=== PATIENT | female | born 1950 | race Caucasian/White ===

== ENCOUNTER 2020-03-03 12:33 | Inpatient (IN) | payer MEDICARE, BC ==
--- NOTE | 2020-03-03 13:21 | ER Document Report ---
ED Medical Screen (RME) - General Chief Complaint: Knee Pain Stated Complaint: RIGHT KNEE/HIP PAIN, SWELLING Time Seen by Provider: 03/03/20 13:15 Primary Care Provider: LU VAZQUEZ MD [Primary Care Provider] - Follow up as needed Notes: HPI: 69-year-old female being treated with oral chemotherapy for ovarian cancer presenting for evaluation of right hip and right knee pain. Patient went to stand up yesterday and felt sudden pain in the hip and the knee. States she is having difficulty walking now because of the pain. She is on oxycodone 20 mg every 4 hours and states it is not helping her pain. Patient complaining about significant swelling of the right knee. Patient also complaining about pain in the right lateral chest, states she has a history of fluid in the lung and has had to have thoracentesis in the past and was told she would need to come to the hospital later today for an outpatient chest x-ray to evaluate whether she might need thoracentesis again. No fever. PHYSICAL EXAMINATION: There is moderate effusion to the right knee with mild tenderness on palpation. Mild tenderness on palpation of the right hip but limited exam due to sitting position in triage I have greeted and performed a rapid initial assessment of this patient. A comprehensive ED assessment and evaluation of the patient, analysis of test results and completion of medical decision making process will be conducted by an additional ED providers. - Related Data Allergies/Adverse Reactions: ciprofloxacin [From Cipro] Allergy (Verified 03/03/20 13:12) clarithromycin [From Biaxin] Allergy (Verified 03/03/20 13:12) gabapentin [From Neurontin] Allergy (Verified 03/03/20 13:12) linaclotide [From Linzess] Allergy (Verified 03/03/20 13:12) meloxicam [From Mobic] Allergy (Verified 03/03/20 13:12) meperidine [From Demerol] Allergy (Verified 03/03/20 13:12) Penicillins Allergy (Verified 03/03/20 13:12) tapentadol [From Nucynta] Allergy (Verified 03/03/20 13:12) Home Medications: Wellbutrin. Lamictal. Metoprolol. OxycontinValium. Zofram. Protonix. PlaquenilAtivan. Eliquis. Amiodorone. Calcium. L Lysine. Bcomp pierre. 1 a day. Vitamin d. Probiotic. Miralax. Ropinirole. Ambien. Dexamethasone Past Medical History - Social History Chew tobacco use (# tins/day): No Frequency of alcohol use: Occasional Drug Abuse: None - Past Medical History Cardiac Medical History: Reports: Hx Hypertension Denies: Hx Congestive Heart Failure, Hx Heart Attack Pulmonary Medical History: Reports: Hx Pneumonia Denies: Hx Asthma, Hx Bronchitis, Hx COPD, Hx Tuberculosis Neurological Medical History: Denies: Hx Seizures, Hx Parkinson's Disease Renal/ Medical History: Denies: Hx End Stage Renal Disease, Hx Kidney Stones GI Medical History: Denies: Hx Cirrhosis, Hx Gastroesophageal Reflux Disease, Hx Ulcer Musculoskeltal Medical History: Reports Hx Arthritis, Denies Hx Multiple Sclerosis Psychiatric Medical History: Reports: Hx Depression Denies: Hx Bipolar Disorder, Hx Schizophrenia - Immunizations Hx Diphtheria, Pertussis, Tetanus Vaccination: Yes Physical Exam - Vital signs Vitals: Temp Pulse Resp BP Pulse Ox 99.1 F 92 16 143/86 H 98 03/03/20 12:37 03/03/20 12:37 03/03/20 12:37 03/03/20 12:37 03/03/20 12:37 Course - Vital Signs Vital signs: Temp Pulse Resp BP Pulse Ox 99.1 F 92 16 143/86 H 98 03/03/20 13:04 03/03/20 12:37 03/03/20 12:37 03/03/20 12:37 03/03/20 12:37 Doctor's Discharge - Discharge Referrals: LU VAZQUEZ MD [Primary Care Provider] - Follow up as needed
--- NOTE | 2020-03-03 14:24 | RADIOLOGY REPORT (SQ) ---
EXAM DESCRIPTION: HIP RIGHT AP/LATERAL IMAGES COMPLETED DATE/TIME: 03/03/2020 1:56 pm REASON FOR STUDY: injury COMPARISON: None. NUMBER OF VIEWS: Two views. TECHNIQUE: AP pelvis and additional frog-leg view of the right hip. LIMITATIONS: None. FINDINGS: MINERALIZATION: Decreased. RIGHT HIP: No definite displaced fracture. Subcapital sclerotic band may represent osteophytosis alt adalid impacted nondisplaced fracture is not entirely excluded. Severe degenerative changes with bone on bone contact, subchondral sclerosis and subchondral cystic change. LEFT HIP: Left hip arthroplasty in adequate alignment on the single frontal projection. Distal tip o f the arthroplasty hardware is excluded collimation. PUBIS AND ISCHIUM: No fracture. SACRUM: No fracture or dislocation. No worrisome bone lesions. LOWER LUMBAR SPINE: Lumbar spondylosis and facet arthropathy. SOFT TISSUES: Scattered pelvic phleboliths. OTHER: No other significant finding. IMPRESSION: 1. No displaced fracture. Right hip demonstrates a subcapital sclerotic band which may represent osteophytosis although impacted nondisplaced fractures not entirely excluded. Recommend C T if inability to bear weight or high clinical concern for acute traumatic injury. 2. Severe degenerative changes of the right hip with bone on bone contact. TECHNICAL DOCUMENTATION: JOB ID: [id number] 2010 [employer]- All Rights Reserved Reading location - IP/workstation name: [email or web address]
--- NOTE | 2020-03-03 14:27 | RADIOLOGY REPORT (SQ) ---
EXAM DESCRIPTION: CHEST 2 VIEWS IMAGES COMPLETED DATE/TIME: 03/03/2020 1:56 pm REASON FOR STUDY: cough/poss thoracentesis COMPARISON: None. EXAM PARAMETERS: NUMBER OF VIEWS: two views TECHNIQUE: Digital Frontal and Lateral radiographic views of the chest acquired. RADIATION DOSE: NA LIMITATIONS: none FINDINGS: LUNGS AND PLEURA: Small right pleural effusion. Emphysematous change hyperinflation and i ncreased AP diameter. No pneumothorax. MEDIASTINUM AND HILAR STRUCTURES: No masses or contour abnormalities. HEART AND VASCULAR STRUCTURES: Heart normal size. No evidence for failure. BONES: No acute findings. HARDWARE: Calcified bilateral breast prostheses. Right chest port with catheter tip at right atrium. OTHER: No other significant finding. IMPRESSION: Emphysematous change with small right pleural effusion. No focal airspace disease. No pneumothorax. TECHNICAL DOCUMENTATION: JOB ID: [id number] 2010 [employer]- All Rights Reserved Reading location - IP/workstation name: [email or web address]
--- NOTE | 2020-03-03 14:42 | RADIOLOGY REPORT (SQ) ---
EXAM DESCRIPTION: KNEE RIGHT 4 VIEWS IMAGES COMPLETED DATE/TIME: 03/03/2020 1:56 pm REASON FOR STUDY: injury COMPARISON: None. NUMBER OF VIEWS: Four views. TECHNIQUE: AP, lateral, and both oblique radiographic images acquired of the right knee. LIMITATIONS: None. FINDINGS: MINERALIZATION: Decreased. BONES: No acute fracture dislocation. Small medial and patellar femoral compartment osteophytes. JOINT: Large joint effusion. SOFT TISSUES: No soft tissue swelling. No radio-opaque foreign body. OTHER: No other significant finding. IMPRESSION: 1. Large joint effusion without evidence of acute bony abnormality. 2. Decreased osseous mineralization with mild osteoarthritic change. TECHNICAL DOCUMENTATION: JOB ID: [id number] 2010 [employer]- All Rights Reserved Reading location - IP/workstation name: [email or web address]
[2020-03-03] MEDS ORDERED: LIDOCAINE 1%/EPINEPHRINE INJ 20 ML VIAL INJ ONE (14:52)
[2020-03-03] MEDS ORDERED: MORPHINE SULFATE 10 MG/ML INJ IV ONE ×2 (15:31→17:18)
--- NOTE | 2020-03-03 15:41 | RADIOLOGY REPORT (SQ) ---
EXAM DESCRIPTION: CT RT LOWER EXTREMITY WITHOUT IMAGES COMPLETED DATE/TIME: 03/03/2020 3:24 pm REASON FOR STUDY: hip pain COMPARISON: Same day radiograph TECHNIQUE: CT scan of the right hip performed without intravenous or oral contrast. Images reviewed with soft tissue and bone windows. Reconstructed coronal and sagittal MPR images reviewed. All ritesh ges stored on PACS. All CT scanners at this facility use dose modulation, iterative reconstruction, and/or weight based d osing when appropriate to reduce radiation dose to as low as reasonably achievable (ALARA). [facility]: Dose Right [facility]: CareDose [facility]: Dose Right [facility]: Teradose 4D [facility]: MyShape RADIATION DOSE: CT Rad equipment meets quality standard of care and radiation dose reduction techniq ues were employed. CTDIvol: 4.1 mGy. DLP: 111 mGy-cm. mGy. LIMITATIONS: None. FINDINGS: PELVIC BONES: No acute fracture. No worrisome bone lesions. VISUALIZED SPINE: No acute findings. SYMPTOMATIC HIP: No fracture identified. Previously-seen sclerotic band likely corresponds to subcap ital osteophytosis. There is severe degenerative changes at the right hip with bone on bone contact, subchondral sclerosis and subchondral cystic change. OPPOSITE HIP: Not imaged. PELVIC SOFT TISSUES: Postsurgical changes from prior bowel resection with chain staple line partially visualized. EXTRAPELVIC SOFT TISSUES: Subcutaneous edema no along the visualize lower extremity. OTHER: No other significant finding. IMPRESSION: No evidence of acute fracture of the right hip. Severe osteoarthritic changes with bone on bone contact. TECHNICAL DOCUMENTATION: JOB ID: [id number] Quality ID # [id number]: Final reports with documentation of one or more dose reduction techniques (e.g., Au tomated exposure control, adjustment of the mA and/or kV according to patient size, use of iterative reconstruction technique) 2010 [employer]- All Rights Reserved Reading location - IP/workstation name: [email or web address]
[2020-03-03 15:46] LABS: HEMATOCRIT 26.3 % (36.0-47.0); HEMOGLOBIN 8.6 g/dL (12.0-15.5); MEAN CORPUSCULAR HEMOGLOBIN 28.5 pg (27.0-33.4); MEAN CORPUSCULAR HGB CONC 32.5 g/dL (32.0-36.0); MEAN CORPUSCULAR VOLUME 88 fl (80-97); PLATELET COUNT 282 10^3/uL (150-450); RED CELL DISTRIBUTION WIDTH 17.5 % (11.5-14.0); WHITE BLOOD COUNT 4.8 10^3/uL (4.0-10.5)
[2020-03-03 15:58] LABS: ALBUMIN 3.6 g/dL (3.5-5.0); ALKALINE PHOSPHATASE 206 U/L (38-126); ANION GAP 7 (5-19); ASPARTATE AMINO TRANSFERASE 40 U/L (14-36); BILIRUBIN,TOTAL 0.3 mg/dL (0.2-1.3); BLOOD UREA NITROGEN 19 mg/dL (7-20); CALCIUM 8.6 mg/dL (8.4-10.2); CARBON DIOXIDE 28 mmol/L (22-30); CHLORIDE 98 mmol/L (98-107); GLUCOSE 94 mg/dL (75-110); POTASSIUM 4.5 mmol/L (3.6-5.0); TOTAL PROTEIN 6.2 g/dL (6.3-8.2)
[2020-03-03 16:27] LABS: ABSOLUTE LYMPHOCYTES# (MANUAL) 0.8 10^3/uL (0.5-4.7); ABSOLUTE MONOCYTES # (MANUAL) 0.5 10^3/uL (0.1-1.4); BASOPHILS % (MANUAL) 0 % (0-2); EOSINOPHILS % (MANUAL) 0 % (0-6); LYMPHOCYTES % (MANUAL) 16 % (13-45); MONOCYTES % (MANUAL) 11 % (3-13); SEGMENTED NEUTROPHILS % (MAN) 73 % (42-78); TOTAL CELLS COUNTED 100
[2020-03-03 16:28] LABS: ANISOCYTOSIS 1+; OVALOCYTES SLIGHT; PLATELET COMMENT ADEQUATE
[2020-03-03 17:17] LABS: MONOSODIUM URATE CRYSTALS NONE OBSERVED
[2020-03-03 17:18] LABS: CALCIUM PYROPHOSPHATE CRYSTALS INTRACELLULAR; OTHER CRYSTALS NONE OBSERVED
[2020-03-03 17:36] LABS: FLUID APPEARANCE CLOUDY; FLUID COLOR YELLOW; FLUID SOURCE KNEE; FLUID TYPE SYNOVIAL; FLUID VISCOSITY MODERATELY VISCOUS
[2020-03-03 17:56] LABS: APPEARANCE,URINE CLEAR; BILIRUBIN,URINE NEGATIVE (NEGATIVE); COLOR,URINE STRAW; GLUCOSE, URINE NEGATIVE (NEGATIVE); KETONES,URINE NEGATIVE (NEGATIVE); LEUKOCYTE ESTERASE,URINE NEGATIVE (NEGATIVE); NITRITE,URINE NEGATIVE (NEGATIVE); PROTEIN,URINE NEGATIVE (NEGATIVE); URINE SPECIFIC GRAVITY 1.004; UROBILINOGEN,URINE NEGATIVE mg/dL (<2.0)
--- NOTE | 2020-03-03 17:56 | ER Document Report ---
ED General - General Chief Complaint: Knee Pain Stated Complaint: RIGHT KNEE/HIP PAIN, SWELLING Time Seen by Provider: 03/03/20 13:15 Primary Care Provider: LU VAZQUEZ MD [Primary Care Provider] - Follow up as needed Information source: Patient - HPI Notes: Patient presents complaining of right knee and right hip pain. She denies any recent falls or trauma. She states she is an ovarian cancer patient is currently on chemotherapy. She states she is also on a blood thinner. She states she just woke up this morning and noticed that the knee and the right hip are painful and swollen and that it was hard to bear weight. This pain is constant. It is worse with movement and better with rest. It radiates up the right leg. It is moderate to severe in intensity and is a constant throbbing sensation. She denies fevers or any other problems. - Related Data Allergies/Adverse Reactions: ciprofloxacin [From Cipro] Allergy (Verified 03/03/20 13:12) clarithromycin [From Biaxin] Allergy (Verified 03/03/20 13:12) gabapentin [From Neurontin] Allergy (Verified 03/03/20 13:12) linaclotide [From Linzess] Allergy (Verified 03/03/20 13:12) meloxicam [From Mobic] Allergy (Verified 03/03/20 13:12) meperidine [From Demerol] Allergy (Verified 03/03/20 13:12) Penicillins Allergy (Verified 03/03/20 13:12) tapentadol [From Nucynta] Allergy (Verified 03/03/20 13:12) Home Medications: Wellbutrin. Lamictal. Metoprolol. OxycontinValium. Zofram. Protonix. PlaquenilAtivan. Eliquis. Amiodorone. Calcium. L Lysine. Bcomplex. 1 a day. Vitamin d. Probiotic. Miralax. Ropinirole. Ambien. Dexamethasone Past Medical History - General Information source: Patient - Social History Smoking Status: Never Smoker Chew tobacco use (# tins/day): No Frequency of alcohol use: Occasional Drug Abuse: None Family History: Reviewed & Not Pertinent Patient has homicidal ideation: No - Past Medical History Cardiac Medical History: Reports: Hx Hypertension Denies: Hx Congestive Heart Failure, Hx Heart Attack Pulmonary Medical History: Reports: Hx Pneumonia Denies: Hx Asthma, Hx Bronchitis, Hx COPD, Hx Tuberculosis Neurological Medical History: Denies: Hx Seizures, Hx Parkinson's Disease Renal/ Medical History: Denies: Hx End Stage Renal Disease, Hx Kidney Stones GI Medical History: Denies: Hx Cirrhosis, Hx Gastroesophageal Reflux Disease, Hx Ulcer Musculoskeletal Medical History: Reports Hx Arthritis, Denies Hx Multiple Sclerosis Psychiatric Medical History: Reports: Hx Depression Denies: Hx Bipolar Disorder, Hx Schizophrenia - Immunizations Hx Diphtheria, Pertussis, Tetanus Vaccination: Yes Review of Systems - Review of Systems Constitutional: denies: Chills, Fever Cardiovascular: denies: Chest pain, Palpitations Respiratory: denies: Cough, Short of breath -: Yes All other systems reviewed and negative Physical Exam - Vital signs Vitals: Temp Pulse Resp BP Pulse Ox 99.1 F 92 16 143/86 H 98 03/03/20 12:37 03/03/20 12:37 03/03/20 12:37 03/03/20 12:37 03/03/20 12:37 Interpretation: Normal - General General appearance: Appears well, Alert - HEENT Head: Normocephalic, Atraumatic Eyes: Normal Pupils: PERRL - Respiratory Respiratory status: No respiratory distress Chest status: Nontender Breath sounds: Normal Chest palpation: Normal - Cardiovascular Rhythm: Regular Heart sounds: Normal auscultation Murmur: No - Abdominal Inspection: Normal Distension: No distension Bowel sounds: Normal Tenderness: Nontender Organomegaly: No organomegaly - Back Back: Normal, Nontender - Extremities General upper extremity: Normal inspection, Nontender, Normal color, Normal ROM, Normal temperature General lower extremity: Other - Right knee has a large tender joint effusion. There is a slight increase of temperature to the right knee. The right knee does have limited range of motion. She is neurovascular intact distally. The right hip is also somewhat tender to palpation with limited range of motion. I do not appreciate any joint effusion of the right hip.. No: Arthur's sign - Neurological Neuro grossly intact: Yes Cognition: Normal Orientation: AAOx4 Elio Coma Scale Eye Opening: Spontaneous Elio Coma Scale Verbal: Oriented Elio Coma Scale Motor: Obeys Commands Sidney Coma Scale Total: 15 Speech: Normal Motor strength normal: LUE, RUE, LLE, RLE Sensory: Normal - Psychological Associated symptoms: Normal affect, Normal mood - Skin Skin Temperature: Warm Skin Moisture: Dry Skin Color: Normal Course - Re-evaluation Re-evalutation: 03/03/20 18:53 Patient presents with a large tender swollen knee. I did aspirate synovial fluid and it was cloudy. It does have a high percentage of neutrophils and it it does have a borderline white blood cell count however in the setting of this patient being immunocompromised with cancer and being on chemotherapy it seems most prudent to start the patient on antibiotics. In addition there is no other good reason for the patient's joint swelling and elevated white blood cell count as crystals were not seen. - Vital Signs Vital signs: Temp Pulse Resp BP Pulse Ox 99.0 F 93 16 139/86 H 99 03/03/20 18:47 03/03/20 18:47 03/03/20 18:47 03/03/20 18:47 03/03/20 18:47 - Laboratory Result Diagrams: 03/03/20 15:25 03/03/20 15:25 Laboratory results interpreted by me: 03/03/20 03/03/20 15:25 15:25 RBC 3.00 L Hgb 8.6 L Hct 26.3 L RDW 17.5 H Sodium 132.7 L AST 40 H Alkaline Phosphatase 206 H Total Protein 6.2 L - Diagnostic Test Radiology reviewed: Image reviewed, Reports reviewed Procedures - Joint Aspiration Right Knee Time completed: 18:54 Consent obtained: Yes Joint aspiration pre-procedure: Betadine prep applied, Sterile drapes applied Anesthetic type: 1% Lidocaine w/epi mL's of anesthetic: 3 Needle size: 18 Amount/type of drainage: 100ml Number of attempts: 1 Complications: No Discharge - Discharge Clinical Impression: Septic joint of right knee joint Qualifiers: Septic arthritis organism: due to unspecified organism Qualified Code(s): M00.9 - Pyogenic arthritis, unspecified Condition: Serious Disposition: ADMITTED INPATIENT Admitting Provider: Philipp (Hospitalist) Unit Admitted: Medical Floor Referrals: LU VAZQUEZ MD [Primary Care Provider] - Follow up as needed
[2020-03-03] MEDS ORDERED: CEFEPIME 2 GM/D5W RTU 2 GM/50 ML RTUPB IV ONE (18:46)
[2020-03-03] MEDS ORDERED: VANCOMYCIN HCL INJ 1000 MG VIAL IV ONE (18:46)
[2020-03-03] MEDS ORDERED: MAG HYDROX/AL HYDROX/SIMETH SUSP 30 ML UDCUP PO PRN (19:27)
[2020-03-03] MEDS ORDERED: IPRATROPIUM/ALBUTEROL 0.5-2.5 MG/3 ML AMPUL NEB PRN (19:27)
[2020-03-03] MEDS ORDERED: MAGNESIUM HYDROXIDE SUSP 30 ML UDCUP PO PRN (19:27)
[2020-03-03] MEDS ORDERED: ACETAMINOPHEN 325 MG TABLET PO PRN (19:27)
[2020-03-03] MEDS ORDERED: VANCOMYCIN HCL 0 MG in DEXTROSE 5%-WATER 250 ML IV NR (19:30)
[2020-03-03] MEDS ORDERED: DIAZEPAM 5 MG TABLET PO PRN (22:22)
[2020-03-03] MEDS ORDERED: ZOLPIDEM TARTRATE 5 MG TABLET PO PRN (22:25)
[2020-03-03] MEDS ORDERED: OXYCODONE HCL IR 5 MG TABLET PO PRN (22:26)
[2020-03-03] MEDS: HEPARIN SOD (PORCINE) 5,000 UNIT/ML 1 ML VIAL SUBCUT SCH (22:56)
[2020-03-03] MEDS ORDERED: AMIODARONE HCL 200 MG TABLET PO ONE (23:00)
[2020-03-03] MEDS ORDERED: ROPINIROLE HCL 1 MG TABLET PO ONE (23:00)
[2020-03-03] MEDS ORDERED: OXYCODONE HCL IR 5 MG TABLET PO ONE (23:00)
[2020-03-03] MEDS ORDERED: POLYETHYLENE GLYCOL 3350 POWDER 17 GM/1 PACKET PO ONE (23:00)
[2020-03-03] MEDS ORDERED: APIXABAN 2.5 MG TABLET PO ONE (23:00)
[2020-03-04] MEDS: NORMAL SALINE 1000 ML 1,000 ML IV PRN ×2 (00:43→06:01)
[2020-03-04] MEDS ORDERED: LORAZEPAM 0.5 MG TABLET PO PRN (04:50)
--- NOTE | 2020-03-04 05:05 | PDOC H&P ---
History of Present Illness Admission Date/PCP: 03/03/20 19:30 LU BLOCK MD Patient complains of: Right knee pain and swelling History of Present Illness: DI CHOWDHURY is a 69 year old female with a past medical history of hypertension, depression, anxiety, osteoarthritis, breast cancer and palliative care chemotherapy through Dr. Miles and Dr. Block for recurrent ovarian cancer. She presents with 24 hours of spontaneous pain swelling and erythema to the right knee, unable to bear weight without preceding injury or subsequent fever. She is seen in the emergency department where she is found to have swelling of the right knee, arthrocentesis reveals leukocytosis of 34,000. She started on empiric antibiotics, symptomatic management and referred to the hospitalist following consultation recommendations of orthopedic surgery Dr. Foley. Patient denies previous episode but admits to severe osteoarthritis of the right knee and hip. She also admits to a new unclear chemo therapeutic agent. Past Medical History Cardiac Medical History: Reports: Hypertension Denies: Congestive Heart Failure, Myocardial Infarction Pulmonary Medical History: Reports: Pneumonia Denies: Asthma, Bronchitis, Chronic Obstructive Pulmonary Disease (COPD), Tuberculosis Neurological Medical History: Denies: Seizures Renal/ Medical History: Denies: End Stage Renal Disease Malignancy Medical History: Reports: Breast Cancer, Ovarian Cancer GI Medical History: Reports: Other - Partial bowel resection with recurrent partial obstruction Denies: Cirrhosis, Gastroesophageal Reflux Disease Musculoskeltal Medical History: Reports: Arthritis Psychiatric Medical History: Reports: Depression Denies: Bipolar Disorder Hematology: Reports: Anemia Denies: Bleeding Tendencies Past Surgical History Past Surgical History: Reports: Knee Replacement, Orthopedic Surgery - Left knee and hip, Other - Partial bowel resection Social History Information Source: Patient Smoking Status: Former Smoker Cigarettes Packs Per Day: 0.5 Electronic Cigarette use?: No Frequency of Alcohol Use: Occasional Hx Recreational Drug Use: Yes Drugs: Marijuana Hx Prescription Drug Abuse: No - Advance Directive Resuscitation Status: Full Code Family History Family History: Arthritis, Hypertension Parental Family History Reviewed: Yes Children Family History Reviewed: Yes Sibling(s) Family History Reviewed.: Yes Medication/Allergy Home Medications: Amiodarone HCl [Cordarone 200 mg Tablet] 200 mg PO MOWEFR@1000 03/03/20 Apixaban [Eliquis 2.5 mg Tablet] 2.5 mg PO BID 03/03/20 Bupropion HCl [Bupropion Xl] 300 mg PO DAILY 03/03/20 Calcium Carbonate [Calcium] 600 mg PO DAILY 03/03/20 Diazepam [Valium] 10 mg PO DAILYP PRN 03/03/20 Ergocalciferol (Vitamin D2) [Vitamin D2] 50,000 unit PO DAILY 03/03/20 Lamotrigine [Lamictal] 100 mg PO DAILY 03/03/20 Lorazepam [Ativan 0.5 mg Tablet] 0.5 mg PO Q4HP PRN 03/03/20 Metoprolol Tartrate [Lopressor 25 mg Tablet] 25 mg PO DAILY 03/03/20 Multivitamin [Daily Multiple Vitamin] 1 each PO DAILY 03/03/20 Oxycodone HCl [Oxy-Ir 5 mg Tablet] 20 mg PO Q4HP PRN 03/03/20 Oxycodone HCl [Oxycodone HCl ER] 10 mg PO BID 03/03/20 Polyethylene Glycol 3350 [Miralax Powder 17 gm/Packet] 17 gm PO QHS 03/03/20 Prochlorperazine Maleate [Compazine] 10 mg PO DAILYP PRN 03/03/20 Ropinirole HCl 1 mg PO QHS 03/03/20 Zolpidem Tartrate [Ambien 5 mg Tablet] 5 mg PO HSP PRN 03/03/20 Allergies/Adverse Reactions: ciprofloxacin [From Cipro] Allergy (Verified 03/03/20 13:12) clarithromycin [From Biaxin] Allergy (Verified 03/03/20 13:12) gabapentin [From Neurontin] Allergy (Verified 03/03/20 13:12) linaclotide [From Linzess] Allergy (Verified 03/03/20 13:12) meloxicam [From Mobic] Allergy (Verified 03/03/20 13:12) meperidine [From Demerol] Allergy (Verified 03/03/20 13:12) Penicillins Allergy (Verified 03/03/20 13:12) tapentadol [From Nucynta] Allergy (Verified 03/03/20 13:12) Review of Systems Constitutional: PRESENT: as per HPI, weakness, weight loss, other - Cachexia with temporal wasting. ABSENT: chills, fever(s), headache(s), weight gain Eyes: ABSENT: visual disturbances Ears: ABSENT: hearing changes Cardiovascular: ABSENT: chest pain, dyspnea on exertion, edema, orthropnea, palpitations Respiratory: ABSENT: cough, hemoptysis Gastrointestinal: ABSENT: abdominal pain, constipation, diarrhea, hematemesis, hematochezia, nausea, vomiting Genitourinary: ABSENT: dysuria, hematuria Musculoskeletal: PRESENT: as per HPI, joint swelling, muscle weakness Integumentary: ABSENT: rash, wounds Neurological: ABSENT: abnormal gait, abnormal speech, confusion, dizziness, focal weakness, syncope Psychiatric: ABSENT: anxiety, depression, homidical ideation, suicidal ideation Endocrine: ABSENT: cold intolerance, heat intolerance, polydipsia, polyuria Hematologic/Lymphatic: ABSENT: easy bleeding, easy bruising Physical Exam Vital Signs: Temp Pulse Resp BP Pulse Ox 98.8 F 86 16 113/72 100 03/03/20 23:16 03/03/20 23:50 03/03/20 23:50 03/03/20 23:16 03/03/20 23:50 Intake & Output 03/02/20 03/03/20 03/04/20 11:59 11:59 11:59 Intake Total 200 Balance 200 Weight 49.5 kg General appearance: PRESENT: cooperative, mild distress, thin, other - Cachexia with temporal wasting. ABSENT: disheveled Head exam: PRESENT: atraumatic, normocephalic Eye exam: PRESENT: conjunctiva pink, EOMI, PERRLA. ABSENT: scleral icterus Ear exam: PRESENT: normal external ear exam Mouth exam: PRESENT: moist, tongue midline Neck exam: ABSENT: carotid bruit, JVD, lymphadenopathy, thyromegaly Respiratory exam: PRESENT: clear to auscultation seth. ABSENT: rales, rhonchi, wheezes Cardiovascular exam: PRESENT: RRR. ABSENT: diastolic murmur, rubs, systolic mur mur Pulses: PRESENT: normal dorsalis pedis pul Vascular exam: PRESENT: normal capillary refill GI/Abdominal exam: PRESENT: normal bowel sounds, soft. ABSENT: distended, guarding, mass, organolmegaly, rebound, tenderness Rectal exam: PRESENT: deferred Extremities exam: PRESENT: full ROM, joint swelling - Right knee joint swelling. ABSENT: calf tenderness, clubbing, pedal edema Neurological exam: PRESENT: alert, awake, oriented to person, oriented to place, oriented to time, oriented to situation, CN II-XII grossly intact. ABSENT: motor sensory deficit Psychiatric exam: PRESENT: appropriate affect, normal mood. ABSENT: homicidal ideation, suicidal ideation Skin exam: PRESENT: dry, intact, warm. ABSENT: cyanosis, rash Results Laboratory Results: 03/03/20 15:25 03/03/20 15:25 03/03/20 03/03/20 03/03/20 15:25 15:25 16:30 WBC 4.8 RBC 3.00 L Hgb 8.6 L Hct 26.3 L MCV 88 MCH 28.5 MCHC 32.5 RDW 17.5 H Plt Count 282 Seg Neutrophils % Not Reportable Sodium 132.7 L Potassium 4.5 Chloride 98 Carbon Dioxide 28 Anion Gap 7 BUN 19 Creatinine 0.86 Est GFR ( Amer) > 60 Glucose 94 Calcium 8.6 Total Bilirubin 0.3 AST 40 H Alkaline Phosphatase 206 H Total Protein 6.2 L Albumin 3.6 Urine Color Urine Appearance Urine pH Ur Specific [place] Urine Protein Urine Glucose (UA) Urine Ketones Urine Blood Urine Nitrite Ur Leukocyte Esterase Urine WBC (Auto) Urine RBC (Auto) Fluid Type SYNOVIAL Fluid Source Fluid Color Fluid Appearance Fluid Viscosity Fluid WBC Fluid RBC 03/03/20 03/03/20 16:30 17:00 WBC RBC Hgb Hct MCV MCH MCHC RDW Plt Count Seg Neutrophils % Sodium Potassium Chloride Carbon Dioxide Anion Gap BUN Creatinine Est GFR ( Amer) Glucose Calcium Total Bilirubin AST Alkaline Phosphatase Total Protein Albumin Urine Color STRAW Urine Appearance CLEAR Urine pH 5.0 Ur Specific [place] 1.004 Urine Protein NEGATIVE Urine Glucose (UA) NEGATIVE Urine Ketones NEGATIVE Urine Blood NEGATIVE Urine Nitrite NEGATIVE Ur Leukocyte Esterase NEGATIVE Urine WBC (Auto) 1 Urine RBC (Auto) 0 Fluid Type SYNOVIAL Fluid Source KNEE Fluid Color YELLOW Fluid Appearance CLOUDY Fluid Viscosity MODERATELY VISCOUS Fluid WBC 39175 Fluid RBC 8018 Impressions: Chest X-Ray 03/03/20 13:19 IMPRESSION: Emphysematous change with small right pleural effusion. No focal airspace disease. No pneumothorax. Hip/Pelvis X-Ray 03/03/20 13:19 IMPRESSION: 1. No displaced fracture. Right hip demonstrates a subcapital sclerotic band which may represent osteophytosis although impacted nondisplaced fractures not entirely excluded. Recommend CT if inability to bear weight or high clinical concern for acute traumatic injury. 2. Severe degenerative changes of the right hip with bone on bone contact. Knee X-Ray 03/03/20 13:19 IMPRESSION: 1. Large joint effusion without evidence of acute bony abnormality. 2. Decreased osseous mineralization with mild osteoarthritic change. Lower Extremity CT 03/03/20 14:46 IMPRESSION: No evidence of acute fracture of the right hip. Severe osteoarthritic changes with bone on bone contact. Assessment and Plan - Diagnosis (1) Anemia Is this a current diagnosis for this admission?: Yes Plan: Likely secondary to chronic disease, follow-up anemia work-up (2) Pain Is this a current diagnosis for this admission?: Yes Plan: Outpatient regiment with OxyIR holding parameters for systolic pressure less than 100 (3) Ovarian cancer Is this a current diagnosis for this admission?: Yes Plan: Consider oncology consult with Dr. Quevedo, otherwise follow-up outpatient (4) Septic joint of right knee joint Qualifiers: Septic arthritis organism: due to unspecified organism Qualified Code(s): M00.9 - Pyogenic arthritis, unspecified Is this a current diagnosis for this admission?: Yes Plan: Empiric antibiotics initiated, IV fluid challenge, follow-up CBC, synovial fluid and blood culture - Time Time Spent with patient: 25-34 minutes - Inpatient Certification Medical Necessity: Need Close Monitoring Due to Risk of Patient Decompensation
[2020-03-04] MEDS: OXYCODONE HCL IR 5 MG TABLET PO PRN ×4 (05:23→21:07)
[2020-03-04 05:47] LABS: HEMATOCRIT 20.1 % (36.0-47.0); MEAN CORPUSCULAR HEMOGLOBIN 28.7 pg (27.0-33.4); MEAN CORPUSCULAR HGB CONC 33.3 g/dL (32.0-36.0); MEAN CORPUSCULAR VOLUME 86 fl (80-97); PLATELET COUNT 190 10^3/uL (150-450); RED BLOOD COUNT 2.34 10^6/uL (3.72-5.28); RED CELL DISTRIBUTION WIDTH 16.7 % (11.5-14.0); WHITE BLOOD COUNT 3.1 10^3/uL (4.0-10.5)
[2020-03-04 05:58] LABS: ABSOLUTE RETICS # 0.055 10^6/uL (0.028-0.122); RETICULOCYTE COUNT (AUTO) 2.32 % (0.66-2.85)
[2020-03-04 06:10] LABS: HEMOGLOBIN 6.7 g/dL (12.0-15.5); IRON(TIBC) 16.8 ug/dL (37-170)
[2020-03-04 06:15] LABS: BLOOD UREA NITROGEN 15 mg/dL (7-20); CALCIUM 8.1 mg/dL (8.4-10.2); CARBON DIOXIDE 29 mmol/L (22-30); GLUCOSE 92 mg/dL (75-110); POTASSIUM 4.1 mmol/L (3.6-5.0)
[2020-03-04 06:16] LABS: ABSOLUTE LYMPHOCYTES# (MANUAL) 0.6 10^3/uL (0.5-4.7); ABSOLUTE MONOCYTES # (MANUAL) 0.6 10^3/uL (0.1-1.4); ANISOCYTOSIS 1+; BASOPHILS % (MANUAL) 1 % (0-2); EOSINOPHILS % (MANUAL) 2 % (0-6); LYMPHOCYTES % (MANUAL) 18 % (13-45); MONOCYTES % (MANUAL) 19 % (3-13); OVALOCYTES SLIGHT; PLATELET COMMENT ADEQUATE; POIKILOCYTOSIS SLIGHT; SEGMENTED NEUTROPHILS % (MAN) 60 % (42-78); TOTAL CELLS COUNTED 100
[2020-03-04 06:21] LABS: CHLORIDE 101 mmol/L (98-107)
[2020-03-04 06:24] LABS: ANION GAP 4 (5-19)
--- NOTE | 2020-03-04 07:49 | PDOC CONSULTATION ---
Consultation Consult Date: 03/04/20 Attending physician:: TEO ROTH Provider Consulted: LCUINA PIZANO Consult reason:: 1. Right knee pain and swelling. 2. Right hip pain History of Present Illness Admission Date/PCP: 03/03/20 19:30 LU VAZQUEZ MD Patient complains of: 1. Right knee pain and swelling and inability to ambulate. 2. Right hip pain History of Present Illness: DI CHOWDHURY is a 69 year old female with a history of ovarian cancer. She has been admitted to the hospitalist service complaining of worsening pain i n her right knee and hip and inability to ambulate. Patient underwent arthrocentesis in the emergency department last evening. Examination of the synovial fluid as well as radiographic examination of the knee is consistent with pseudogout. Past Medical History Cardiac Medical History: Reports: Hypertension Denies: Congestive Heart Failure, Myocardial Infarction Pulmonary Medical History: Reports: Pneumonia Denies: Asthma, Bronchitis, Chronic Obstructive Pulmonary Disease (COPD), Tuberculosis Neurological Medical History: Denies: Seizures Renal/ Medical History: Denies: End Stage Renal Disease Malignancy Medical History: Reports: Breast Cancer, Ovarian Cancer GI Medical History: Reports: Other - Partial bowel resection with recurrent partial obstruction Denies: Cirrhosis, Gastroesophageal Reflux Disease Musculoskeltal Medical History: Reports: Arthritis Psychiatric Medical History: Reports: Depression Denies: Bipolar Disorder Hematology: Reports: Anemia Denies: Bleeding Tendencies Past Surgical History Past Surgical History: Reports: Knee Replacement, Orthopedic Surgery - Left knee and hip, Other - Partial bowel resection Social History Smoking Status: Former Smoker Cigarettes Packs Per Day: 0.5 Electronic Cigarette use?: No Frequency of Alcohol Use: Occasional Hx Recreational Drug Use: Yes Drugs: Marijuana Hx Prescription Drug Abuse: No - Advance Directive Resuscitation Status: Full Code Family History Family History: Arthritis, Hypertension Parental Family History Reviewed: Yes Children Family History Reviewed: Yes Sibling(s) Family History Reviewed.: Yes Medication/Allergy Home Medications: Amiodarone HCl [Cordarone 200 mg Tablet] 200 mg PO MOWEFR@1000 03/03/20 Apixaban [Eliquis 2.5 mg Tablet] 2.5 mg PO BID 03/03/20 Bupropion HCl [Bupropion Xl] 300 mg PO DAILY 03/03/20 Calcium Carbonate [Calcium] 600 mg PO DAILY 03/03/20 Diazepam [Valium] 10 mg PO DAILYP PRN 03/03/20 Ergocalciferol (Vitamin D2) [Vitamin D2] 50,000 unit PO DAILY 03/03/20 Lamotrigine [Lamictal] 100 mg PO DAILY 03/03/20 Lorazepam [Ativan 0.5 mg Tablet] 0.5 mg PO Q4HP PRN 03/03/20 Metoprolol Tartrate [Lopressor 25 mg Tablet] 25 mg PO DAILY 03/03/20 Multivitamin [Daily Multiple Vitamin] 1 each PO DAILY 03/03/20 Oxycodone HCl [Oxy-Ir 5 mg Tablet] 20 mg PO Q4HP PRN 03/03/20 Oxycodone HCl [Oxycodone HCl ER] 10 mg PO BID 03/03/20 Polyethylene Glycol 3350 [Miralax Powder 17 gm/Packet] 17 gm PO QHS 03/03/20 Prochlorperazine Maleate [Compazine] 10 mg PO DAILYP PRN 03/03/20 Ropinirole HCl 1 mg PO QHS 03/03/20 Zolpidem Tartrate [Ambien 5 mg Tablet] 5 mg PO HSP PRN 03/03/20 Allergies/Adverse Reactions: ciprofloxacin [From Cipro] Allergy (Verified 03/03/20 13:12) clarithromycin [From Biaxin] Allergy (Verified 03/03/20 13:12) gabapentin [From Neurontin] Allergy (Verified 03/03/20 13:12) linaclotide [From Linzess] Allergy (Verified 03/03/20 13:12) meloxicam [From Mobic] Allergy (Verified 03/03/20 13:12) meperidine [From Demerol] Allergy (Verified 03/03/20 13:12) Penicillins Allergy (Verified 03/03/20 13:12) tapentadol [From Nucynta] Allergy (Verified 03/03/20 13:12) Review of Systems ROS unobtainable: Other - As per HPI Physical Exam Vital Signs: Temp Pulse Resp BP Pulse Ox 98.8 F 87 16 122/81 100 03/03/20 23:16 03/04/20 05:20 03/03/20 23:50 03/04/20 05:20 03/03/20 23:50 Intake & Output 03/03/20 03/04/20 03/05/20 06:59 06:59 06:59 Intake Total 1650 Balance 1650 Weight 49.5 kg General appearance: PRESENT: no acute distress Head exam: PRESENT: atraumatic, normocephalic Neck exam: PRESENT: full ROM Respiratory exam: PRESENT: clear to auscultation seth. ABSENT: rales, rhonchi, wheezes Cardiovascular exam: PRESENT: RRR. ABSENT: bradycardia, clicks, diastolic mu rmur, gallop, irregular rhythm, rubs, +S1, +S2, systolic murmur, tachycardia, other Pulses: PRESENT: +2 pedal pulses bilateral GI/Abdominal exam: PRESENT: soft Rectal exam: PRESENT: deferred Musculoskeletal exam: PRESENT: other - Examination of the right hip: There is significant loss of motion in the right hip particularly in internal rotation consistent with severe degenerative osteoarthritis. Examination of the right knee: There is a moderate effusion of the knee. There is slight erythema and warmth. Gentle passive range of motion of the knee is possible. Results Laboratory Results: 03/04/20 05:20 03/04/20 05:20 03/03/20 03/03/20 03/03/20 15:25 15:25 16:30 WBC 4.8 RBC 3.00 L Hgb 8.6 L Hct 26.3 L MCV 88 MCH 28.5 MCHC 32.5 RDW 17.5 H Plt Count 282 Seg Neutrophils % Not Reportable Retic Count (auto) Sodium 132.7 L Potassium 4.5 Chloride 98 Carbon Dioxide 28 Anion Gap 7 BUN 19 Creatinine 0.86 Est GFR ( Amer) > 60 Glucose 94 Calcium 8.6 Iron TIBC % Saturation Transferrin Ferritin Total Bilirubin 0.3 AST 40 H Alkaline Phosphatase 206 H Total Protein 6.2 L Albumin 3.6 Vitamin B12 Folate Urine Color Urine Appearance Urine pH Ur Specific [place] Urine Protein Urine Glucose (UA) Urine Ketones Urine Blood Urine Nitrite Ur Leukocyte Esterase Urine WBC (Auto) Urine RBC (Auto) Fluid Type SYNOVIAL Fluid Source Fluid Color Fluid Appearance Fluid Viscosity Fluid WBC Fluid RBC 03/03/20 03/03/20 03/04/20 16:30 17:00 05:20 WBC 3.1 L RBC 2.34 L Hgb 6.7 L Hct 20.1 L MCV 86 MCH 28.7 MCHC 33.3 RDW 16.7 H Plt Count 190 Seg Neutrophils % Not Reportable Retic Count (auto) Sodium Potassium Chloride Carbon Dioxide Anion Gap BUN Creatinine Est GFR ( Amer) Glucose Calcium Iron TIBC % Saturation Transferrin Ferritin Total Bilirubin AST Alkaline Phosphatase Total Protein Albumin Vitamin B12 Folate Urine Color STRAW Urine Appearance CLEAR Urine pH 5.0 Ur Specific [place] 1.004 Urine Protein NEGATIVE Urine Glucose (UA) NEGATIVE Urine Ketones NEGATIVE Urine Blood NEGATIVE Urine Nitrite NEGATIVE Ur Leukocyte Esterase NEGATIVE Urine WBC (Auto) 1 Urine RBC (Auto) 0 Fluid Type SYNOVIAL Fluid Source KNEE Fluid Color YELLOW Fluid Appearance CLOUDY Fluid Viscosity MODERATELY VISCOUS Fluid WBC 04094 Fluid RBC 8018 03/04/20 03/04/20 03/04/20 05:20 05:20 05:20 WBC RBC Hgb Hct MCV MCH MCHC RDW Plt Count Seg Neutrophils % Retic Count (auto) 2.32 Sodium 134.3 L Potassium 4.1 Chloride 101 Carbon Dioxide 29 Anion Gap 4 L BUN 15 Creatinine 0.82 Est GFR ( Amer) > 60 Glucose 92 Calcium 8.1 L Iron 16.8 L TIBC 304 % Saturation 6 Transferrin Ferritin 32.70 Total Bilirubin AST Alkaline Phosphatase Total Protein Albumin Vitamin B12 316.0 Folate 16.00 Urine Color Urine Appearance Urine pH Ur Specific [place] Urine Protein Urine Glucose (UA) Urine Ketones Urine Blood Urine Nitrite Ur Leukocyte Esterase Urine WBC (Auto) Urine RBC (Auto) Fluid Type Fluid Source Fluid Color Fluid Appearance Fluid Viscosity Fluid WBC Fluid RBC 03/04/20 05:20 WBC RBC Hgb Hct MCV MCH MCHC RDW Plt Count Seg Neutrophils % Retic Count (auto) Sodium Potassium Chloride Carbon Dioxide Anion Gap BUN Creatinine Est GFR ( Amer) Glucose Calcium Iron TIBC % Saturation Transferrin 220.20 Ferritin Total Bilirubin AST Alkaline Phosphatase Total Protein Albumin Vitamin B12 Folate Urine Color Urine Appearance Urine pH Ur Specific [place] Urine Protein Urine Glucose (UA) Urine Ketones Urine Blood Urine Nitrite Ur Leukocyte Esterase Urine WBC (Auto) Urine RBC (Auto) Fluid Type Fluid Source Fluid Color Fluid Appearance Fluid Viscosity Fluid WBC Fluid RBC Impressions: Chest X-Ray 03/03/20 13:19 IMPRESSION: Emphysematous change with small right pleural effusion. No focal airspace disease. No pneumothorax. Hip/Pelvis X-Ray 03/03/20 13:19 IMPRESSION: 1. No displaced fracture. Right hip demonstrates a subcapital sclerotic band which may represent osteophytosis although impacted nondisplaced fractures not entirely excluded. Recommend CT if inability to bear weight or high clinical concern for acute traumatic injury. 2. Severe degenerative changes of the right hip with bone on bone contact. Knee X-Ray 03/03/20 13:19 IMPRESSION: 1. Large joint effusion without evidence of acute bony abnormality. 2. Decreased osseous mineralization with mild osteoarthritic change. Lower Extremity CT 03/03/20 14:46 IMPRESSION: No evidence of acute fracture of the right hip. Severe osteoarthritic changes with bone on bone contact. Assessment & Plan - Time Time Spent: 30 to 50 Minutes - Plan Summary Plan Summary: The patient is a pleasant 69-year-old woman with a history of ovarian cancer. She has been admitted to the hospitalist service for increasing pain in her knee and inability to ambulate. Clinical, radiographic, and joint fluid examination is most consistent with pseudogout of the right knee. I have discussed nonoperative treatment with the patient including arthrocentesis and cortisone injection.
[2020-03-04] MEDS ORDERED: NORMAL SALINE 250 ML IV PRN ×2 (07:51→08:01)
[2020-03-04] MEDS ORDERED: METHYLPREDNISOLONE ACETATE INJ 80 MG/1 ML VIAL IA ONE (09:00)
[2020-03-04] MEDS ORDERED: BUPIVACAINE HCL 0.5%-EPI 1:200000 INJ/PF 30 ML VIAL INJ ONE (09:00)
[2020-03-04] MEDS ORDERED: CALCIUM CARBONATE 600 MG TABLET PO SCH (10:00)
[2020-03-04] MEDS ORDERED: LAMOTRIGINE 100 MG TABLET PO SCH (10:00)
[2020-03-04] MEDS ORDERED: ERGOCALCIFEROL (VITAMIN D2) 50000 UNIT (1.25 MG) CAPSULE PO SCH (10:00)
[2020-03-04] MEDS ORDERED: METOPROLOL TARTRATE 25 MG TABLET PO SCH (10:00)
[2020-03-04] MEDS ORDERED: CEFTRIAXONE 1 GM/D5W RTU 1 GM/50 ML RTUPB IV SCH (10:00)
[2020-03-04] MEDS ORDERED: BUPROPION HCL 100 MG TABLET PO SCH (10:00)
[2020-03-04] MEDS ORDERED: MULTIVITAMIN TABLET PO SCH (10:00)
[2020-03-04] MEDS: HEPARIN SOD (PORCINE) 5,000 UNIT/ML 1 ML VIAL SUBCUT SCH (10:02)
[2020-03-04] MEDS: APIXABAN 2.5 MG TABLET PO SCH ×2 (10:05→17:14)
[2020-03-04] MEDS: BUPROPION HCL 100 MG TABLET PO SCH ×2 (10:14→17:13)
[2020-03-04] MEDS: DOCUSATE SODIUM 100 MG CAPSULE PO SCH ×2 (10:17→17:14)
[2020-03-04] MEDS: OXYCODONE HCL IR 5 MG TABLET PO SCH ×2 (10:18→17:12)
--- NOTE | 2020-03-04 11:54 | PDOC DISCHARGE SUMMARY ---
Impression - Admit/DC Date/PCP Admission Date/Primary Care Provider: 03/03/20 19:30 LU BLOCK MD Discharge Date: 03/04/20 - Discharge Diagnosis (1) Pseudogout of right knee Is this a current diagnosis for this admission?: Yes (2) Iron deficiency anemia Is this a current diagnosis for this admission?: Yes (3) Anemia associated with chemotherapy Is this a current diagnosis for this admission?: Yes (4) Osteoarthritis of hip Is this a current diagnosis for this admission?: Yes (5) Ovarian cancer Is this a current diagnosis for this admission?: Yes - Additional Information Resuscitation Status: Full Code Discharge Diet: Regular Discharge Activity: Activity As Tolerated Referrals: LU BLOCK MD [Primary Care Provider] - Follow up as needed Prescriptions: Ferrous Sulfate [Feosol 325 mg Tablet] 325 mg PO DAILY #30 tab Home Medications: Amiodarone HCl [Cordarone 200 mg Tablet] 200 mg PO MOWEFR@1000 03/03/20 Apixaban [Eliquis 2.5 mg Tablet] 2.5 mg PO BID 03/03/20 Bupropion HCl [Bupropion Xl] 300 mg PO DAILY 03/03/20 Calcium Carbonate [Calcium] 600 mg PO DAILY 03/03/20 Diazepam [Valium] 10 mg PO DAILYP PRN 03/03/20 Ergocalciferol (Vitamin D2) [Vitamin D2] 50,000 unit PO DAILY 03/03/20 Lamotrigine [Lamictal] 100 mg PO DAILY 03/03/20 Lorazepam [Ativan 0.5 mg Tablet] 0.5 mg PO Q4HP PRN 03/03/20 Metoprolol Tartrate [Lopressor 25 mg Tablet] 25 mg PO DAILY 03/03/20 Multivitamin [Daily Multiple Vitamin] 1 each PO DAILY 03/03/20 Oxycodone HCl [Oxy-Ir 5 mg Tablet] 20 mg PO Q4HP PRN 03/03/20 Oxycodone HCl [Oxycodone HCl ER] 10 mg PO BID 03/03/20 Polyethylene Glycol 3350 [Miralax Powder 17 gm/Packet] 17 gm PO QHS 03/03/20 Prochlorperazine Maleate [Compazine] 10 mg PO DAILYP PRN 03/03/20 Ropinirole HCl 1 mg PO QHS 03/03/20 Zolpidem Tartrate [Ambien 5 mg Tablet] 5 mg PO HSP PRN 03/03/20 Ferrous Sulfate [Feosol 325 mg Tablet] 325 mg PO DAILY #30 tab 03/04/20 History of Present Illiness History of Present Illness: According to admitting provider: DI CHOWDHURY is a 69 year old female wi th a past medical history of hypertension, depression, anxiety, osteoarthritis, breast cancer and palliative care chemotherapy through Dr. Miles and Dr. Block for recurrent ovarian cancer. She presents with 24 hours of spontaneous pain swelling and erythema to the right knee, unable to bear weight without preceding injury or subsequent fever. She is seen in the emergency department where she is found to have swelling of the right knee, arthrocentesis reveals leukocytosis of 34,000. She started on empiric antibiotics, symptomatic management and referred to the hospitalist following consultation recommendations of orthopedic surgery Dr. Foley. Patient denies previous episode but admits to severe osteoarthritis of the right knee and hip. She also admits to a new unclear chemo therapeutic agent. Hospital Course Hospital Course: Patient was admitted for evaluation of right knee effusion. She had significant pain and swelling of her right knee which limited ambulation. Patient was evaluated by orthopedics who performed arthrocentesis which yielded fluid with WBC of 34,000 and demonstrates calcium pyrophosphate crystals intracellularly. Patient initially received antibiotics with concern for septic arthritis. However, from assessment of the fluid analysis orthopedics evaluated this morning and recommends that this findings are consistent with acute pseudogout flare and recommended intracellular injection of corticosteroid which has been performed by orthopedic surgeon. Fluid culture seems to be negative so far. Gram stain also. Patient was also noted to be anemic with hemoglobin less than 7. Iron studies show significant iron deficiency anemia with normal B12 and folic acid levels. She is also on chemotherapy medication for her ovarian cancer which may be contributing to her anemia. Patient transfused 2 units of blood today. She denies any evidence of bleeding from any source. She will be following up with Dr. Block for continued management of anemia and malignancy. Patient requests to be discharged today as she states that she needs to go home and take care of some personal responsibilities and does not want to stay tonight. She is hemodynamically stable and discharged after completion of blood transfusions. Physical Exam Vital Signs: Temp Pulse Resp BP Pulse Ox 98.6 F 84 14 127/76 H 99 03/04/20 07:31 03/04/20 08:14 03/04/20 08:14 03/04/20 07:31 03/04/20 08:14 Intake & Output 03/03/20 03/04/20 03/05/20 06:59 06:59 06:59 Intake Total 1650 410 Balance 1650 410 Weight 49.5 kg General appearance: PRESENT: no acute distress, cooperative Neck exam: ABSENT: JVD Respiratory exam: PRESENT: clear to auscultation seth, unlabored. ABSENT: wheezes Cardiovascular exam: PRESENT: RRR, +S1, +S2. ABSENT: tachycardia GI/Abdominal exam: PRESENT: soft. ABSENT: rigid, tenderness Extremities exam: PRESENT: joint swelling - Right knee with only mild warmth and has good range of motion in the knee. No significant erythema. Neurological exam: PRESENT: alert, awake, oriented to person, oriented to place, oriented to time Results Laboratory Results: WBC 3.1 10^3/uL (4.0-10.5) L 03/04/20 05:20 RBC 2.34 10^6/uL (3.72-5.28) L 03/04/20 05:20 Hgb 6.7 g/dL (12.0-15.5) L 03/04/20 05:20 Hct 20.1 % (36.0-47.0) L 03/04/20 05:20 MCV 86 fl (80-97) 03/04/20 05:20 MCH 28.7 pg (27.0-33.4) 03/04/20 05:20 MCHC 33.3 g/dL (32.0-36.0) 03/04/20 05:20 RDW 16.7 % (11.5-14.0) H 03/04/20 05:20 Plt Count 190 10^3/uL (150-450) 03/04/20 05:20 Lymph % (Auto) Not Reportable 03/04/20 05:20 [place] % (Auto) Not Reportable 03/04/20 05:20 Eos % (Auto) Not Reportable 03/04/20 05:20 Baso % (Auto) Not Reportable 03/04/20 05:20 Reticulocyte # 0.055 10^6/uL (0.028-0.122) 03/04/20 05:20 Absolute Neuts (auto) Not Reportable 03/04/20 05:20 Absolute Lymphs (auto) Not Reportable 03/04/20 05:20 Absolute Monos (auto) Not Reportable 03/04/20 05:20 Absolute Eos (auto) Not Reportable 03/04/20 05:20 Absolute Basos (auto) Not Reportable 03/04/20 05:20 Total Counted 100 03/04/20 05:20 Seg Neutrophils % Not Reportable 03/04/20 05:20 Seg Neuts % (Manual) 60 % (42-78) 03/04/20 05:20 Lymphocytes % (Manual) 18 % (13-45) 03/04/20 05:20 Monocytes % (Manual) 19 % (3-13) H 03/04/20 05:20 Eosinophils % (Manual) 2 % (0-6) 03/04/20 05:20 Basophils % (Manual) 1 % (0-2) 03/04/20 05:20 Abs Neuts (Manual) 1.9 10^3/uL (1.7-8.2) 03/04/20 05:20 Abs Lymphs (Manual) 0.6 10^3/uL (0.5-4.7) 03/04/20 05:20 Abs Monocytes (Manual) 0.6 10^3/uL (0.1-1.4) 03/04/20 05:20 Absolute Eos (Manual) 0.1 10^3/uL (0.0-0.6) 03/04/20 05:20 Abs Basophils (Manual) 0.0 10^3/uL (0.0-0.2) 03/04/20 05:20 Platelet Comment ADEQUATE 03/04/20 05:20 Poikilocytosis SLIGHT 03/04/20 05:20 Anisocytosis 1+ 03/04/20 05:20 Ovalocytes SLIGHT 03/04/20 05:20 Retic Count (auto) 2.32 % (0.66-2.85) 03/04/20 05:20 Sodium 134.3 mmol/L (137-145) L 03/04/20 05:20 Potassium 4.1 mmol/L (3.6-5.0) 03/04/20 05:20 Chloride 101 mmol/L (98-107) 03/04/20 05:20 Carbon Dioxide 29 mmol/L (22-30) 03/04/20 05:20 Anion Gap 4 (5-19) L 03/04/20 05:20 BUN 15 mg/dL (7-20) 03/04/20 05:20 Creatinine 0.82 mg/dL (0.52-1.25) 03/04/20 05:20 Est GFR ( Amer) > 60 (>60) 03/04/20 05:20 Est GFR (MDRD) Non-Af > 60 (>60) 03/04/20 05:20 Glucose 92 mg/dL (75-110) 03/04/20 05:20 Calcium 8.1 mg/dL (8.4-10.2) L 03/04/20 05:20 Iron 16.8 ug/dL (37-170) L 03/04/20 05:20 TIBC 304 ug/dL (250-450) 03/04/20 05:20 % Saturation 6 % 03/04/20 05:20 Transferrin 220.20 mg/dL (206.00-381.00) 03/04/20 05:20 Ferritin 32.70 ng/mL (11.1-264.0) 03/04/20 05:20 Total Bilirubin 0.3 mg/dL (0.2-1.3) 03/03/20 15:25 Direct Bilirubin 0.0 mg/dL (0.0-0.4) 03/03/20 15:25 Neonat Total Bilirubin Not Reportable 03/03/20 15:25 Neonat Direct Bilirubin Not Reportable 03/03/20 15:25 Neonat Indirect Bili Not Reportable 03/03/20 15:25 AST 40 U/L (14-36) H 03/03/20 15:25 ALT 21 U/L (<35) 03/03/20 15:25 Alkaline Phosphatase 206 U/L (38-126) H 03/03/20 15:25 Total Protein 6.2 g/dL (6.3-8.2) L 03/03/20 15:25 Albumin 3.6 g/dL (3.5-5.0) 03/03/20 15:25 Vitamin B12 316.0 pg/mL (239-931) 03/04/20 05:20 Folate 16.00 ng/mL (>2.76) 03/04/20 05:20 Urine Color STRAW 03/03/20 17:00 Urine Appearance CLEAR 03/03/20 17:00 Urine pH 5.0 (5.0-9.0) 03/03/20 17:00 Ur Specific [place] 1.004 03/03/20 17:00 Urine Protein NEGATIVE mg/dL (NEGATIVE) 03/03/20 17:00 Urine Glucose (UA) NEGATIVE mg/dL (NEGATIVE) 03/03/20 17:00 Urine Ketones NEGATIVE mg/dL (NEGATIVE) 03/03/20 17:00 Urine Blood NEGATIVE (NEGATIVE) 03/03/20 17:00 Urine Nitrite NEGATIVE (NEGATIVE) 03/03/20 17:00 Urine Bilirubin NEGATIVE (NEGATIVE) 03/03/20 17:00 Urine Urobilinogen NEGATIVE mg/dL (<2.0) 03/03/20 17:00 Ur Leukocyte Esterase NEGATIVE (NEGATIVE) 03/03/20 17:00 Urine WBC (Auto) 1 /HPF 03/03/20 17:00 Urine RBC (Auto) 0 /HPF 03/03/20 17:00 Urine Bacteria (Auto) TRACE /HPF 03/03/20 17:00 Urine Mucus (Auto) RARE /LPF 03/03/20 17:00 Urine Ascorbic Acid NEGATIVE (NEGATIVE) 03/03/20 17:00 Fluid Type SYNOVIAL 03/03/20 16:30 Fluid Type SYNOVIAL 03/03/20 16:30 Fluid Source KNEE 03/03/20 16:30 Fluid Color YELLOW 03/03/20 16:30 Fluid Appearance CLOUDY 03/03/20 16:30 Fluid Viscosity MODERATELY VISCOUS 03/03/20 16:30 Fluid WBC 33172 /uL 03/03/20 16:30 Fluid RBC 8018 /uL 03/03/20 16:30 Fluid Seg Neutrophils 92 % 03/03/20 16:30 Fluid Lymphocytes 6 % 03/03/20 16:30 Fluid Monocytes 2 % 03/03/20 16:30 Fluid Eosinophils 0 % 03/03/20 16:30 Fluid Basophils 0 % 03/03/20 16:30 Fluid Crystals NONE OBSERVED 03/03/20 16:30 Fluid Crystal Source RIGHT KNEE 03/03/20 16:30 Ca Pyrophosphate Cryst INTRACELLULAR 03/03/20 16:30 Synov Monosodium Urate NONE OBSERVED 03/03/20 16:30 Blood Type A NEGATIVE 03/04/20 08:31 Antibody Screen NEGATIVE 03/04/20 08:31 Crossmatch See Detail 03/04/20 08:31 Impressions: Chest X-Ray 03/03/20 13:19 IMPRESSION: Emphysematous change with small right pleural effusion. No focal airspace disease. No pneumothorax. Hip/Pelvis X-Ray 03/03/20 13:19 IMPRESSION: 1. No displaced fracture. Right hip demonstrates a subcapital sclerotic band which may represent osteophytosis although impacted nondisplaced fractures not entirely excluded. Recommend CT if inability to bear weight or high clinical concern for acute traumatic injury. 2. Severe degenerative changes of the right hip with bone on bone contact. Knee X-Ray 03/03/20 13:19 IMPRESSION: 1. Large joint effusion without evidence of acute bony abnormality. 2. Decreased osseous mineralization with mild osteoarthritic change. Lower Extremity CT 03/03/20 14:46 IMPRESSION: No evidence of acute fracture of the right hip. Severe osteoarthritic changes with bone on bone contact. Plan Time Spent: Greater than 30 Minutes Stroke Is this a Stroke Patient?: No Acute Heart Failure - Is this a Heart Failure Patient?: No
[2020-03-04 20:12] VITALS: BP 140/82
[2020-03-04] MEDS ORDERED: POLYETHYLENE GLYCOL 3350 POWDER 17 GM/1 PACKET PO SCH (22:00)
[2020-03-04] MEDS ORDERED: VANCOMYCIN HCL 750 MG in DEXTROSE 5%-WATER 250 ML IV SCH (22:00)
[2020-03-04] MEDS ORDERED: ROPINIROLE HCL 1 MG TABLET PO SCH (22:00)
[2020-03-04 22:04] LABS: HEMATOCRIT 32.6 % (36.0-47.0); MEAN CORPUSCULAR HEMOGLOBIN 29.5 pg (27.0-33.4); MEAN CORPUSCULAR HGB CONC 34.1 g/dL (32.0-36.0); MEAN CORPUSCULAR VOLUME 87 fl (80-97); PLATELET COUNT 208 10^3/uL (150-450); RED BLOOD COUNT 3.77 10^6/uL (3.72-5.28); RED CELL DISTRIBUTION WIDTH 16.7 % (11.5-14.0)
[2020-03-04 22:07] LABS: HEMOGLOBIN 11.1 g/dL (12.0-15.5)
[2020-03-05] MEDS ORDERED: AMIODARONE HCL 200 MG TABLET PO SCH (10:00)
== END 2020-03-04 23:27 | disposition home or self-care (01) | DRG 554 ==
LOC: ER 12:33 → EH 19:30 → 4N 21:24
PROVIDERS: ADMIT Internal Medicine; ATTEND Internal Medicine
PROC: 0S9C3ZX Drainage of Right Knee Joint, Percutaneous Approach, Diagnostic (ICD-10-PCS; principal; 2020-03-03)
PROC: 30233N1 Transfusion of Nonautologous Red Blood Cells into Peripheral Vein, Percutaneous Approach (ICD-10-PCS; 2020-03-04)
DX: M11.261 Other chondrocalcinosis, right knee (principal); C56.9 Malignant neoplasm of unspecified ovary; R64 Cachexia; M00.9 Pyogenic arthritis, unspecified; D64.9 Anemia, unspecified; M25.561 Pain in right knee; M25.551 Pain in right hip; I10 Essential (primary) hypertension; F41.8 Other specified anxiety disorders; M19.90 Unspecified osteoarthritis, unspecified site; Z79.01 Long term (current) use of anticoagulants; Z79.899 Other long term (current) drug therapy
CPT/HCPCS: 36415; 36430; 71046; 80048; 80053; 81001; 82607; 82728; 82746; 83540; 83550; 84466; 85025; 85045; 86850; 86900; 86901; 86920; 87040; 87070; 87075; 87077; 87150; 87205; 89050; 89060; 96365; 96375; 99285; J0692; J0696; J1040; J1642; J2270; J3370; J3490; J7030; P9016